=== PATIENT | female | born 1960 ===

== ENCOUNTER 2021-12-16 16:00 | Inpatient (IN) ==
[2021-12-16 17:15] LABS: Basophils % 0.4 %; Eosinophils # 0.3 K/mcL (0.0-0.6); Eosinophils % 3.6 %; Hematocrit 41.6 % (35.3-44.9); Hemoglobin 13.5 g/dL (11.5-15.4); Immature Granulocytes % 0.1 % (0-4); Lymphocytes # 3.4 K/mcL (0.6-4.6); Lymphocytes % 42.6 %; Mean Corpuscular HGB Conc 32.5 g/dL (31.6-35.5); Mean Corpuscular Volume 92.4 fL (83.0-100.0); Mean Platelet Volume 9.7 fL (9.4-12.4); Monocytes # 0.7 K/mcL (0.0-1.3); Monocytes % 8.8 %; Neutrophils # 3.6 K/mcL (1.6-8.9); Platelet Count 348 K/mcL (140-400); Red Cell Distribution Width 13.9 % (11.5-14.5); Segmented Neutrophils % 44.5 %
[2021-12-16 17:23] LABS: Prothrombin Time 11.5 Seconds (9.4-12.1)
[2021-12-16 17:25] LABS: Activated Partial Thrombo Time 30.3 Seconds (26.0-36.0)
[2021-12-16 17:42] LABS: BUN/Creatinine Ratio 22 (6-26); Blood Urea Nitrogen 20 mg/dL (8-23); Calcium 9.7 mg/dL (8.6-10.3); Carbon Dioxide 27 mEq/L (23-29); Chloride 105 mEq/L (98-107); Glucose 79 mg/dL (70-105); Osmolality,Calculated 290 (280-300); Sodium 139 mEq/L (136-145); Troponin I 0.04 ng/mL (< 0.04); eGFR For African Americans > 60 (> 60); eGFR For Non-African Americans > 60 (> 60)
[2021-12-16 18:01] LABS: Influenza A PCR Negative (Negative); Influenza B PCR Negative (Negative); Resp. Syncytial Virus PCR Negative (Negative)
[2021-12-16 18:04] LABS: SARS-CoV-2 by PCR (In House) Negative (Negative)
[2021-12-16 19:01] LABS: Magnesium 2.4 mg/dL (1.6-2.6); Thyroid Stimulating Hormone 3.366 mcIU/mL (0.340-5.600)
[2021-12-16] MEDS ORDERED: Naloxone 0.4 MG/ML INJ IVP PRN (20:28)
[2021-12-16] MEDS ORDERED: Ondansetron ODT 4 MG TAB.RAPDIS SL PRN (20:28)
[2021-12-16] MEDS ORDERED: Perflutren Lipid Microsphere 1.3 ML in 0.9 % Sodium Chloride 8.7 ML IVP PRN (22:01)
[2021-12-16] MEDS ORDERED: *HR* LORazepam 2 MG/ML VIAL IVP PRN ×3 (22:53)
[2021-12-17 03:18] LABS: Basophils % 0.5 %; Eosinophils # 0.3 K/mcL (0.0-0.6); Eosinophils % 4.3 %; Hematocrit 38.9 % (35.3-44.9); Hemoglobin 12.9 g/dL (11.5-15.4); Immature Granulocytes % 0.3 % (0-4); Lymphocytes # 2.2 K/mcL (0.6-4.6); Lymphocytes % 35.3 %; Mean Corpuscular HGB Conc 33.2 g/dL (31.6-35.5); Mean Corpuscular Hemoglobin 30.6 pg (28.0-33.3); Mean Corpuscular Volume 92.4 fL (83.0-100.0); Mean Platelet Volume 9.7 fL (9.4-12.4); Monocytes # 0.6 K/mcL (0.0-1.3); Monocytes % 9.7 %; Neutrophils # 3.1 K/mcL (1.6-8.9); Platelet Count 299 K/mcL (140-400); Red Blood Count 4.21 M/mcL (3.82-4.97); Red Cell Distribution Width 13.9 % (11.5-14.5); Segmented Neutrophils % 49.9 %; White Blood Count 6.2 K/mcL (4.3-11.1)
[2021-12-17 03:37] LABS: BUN/Creatinine Ratio 25 (6-26); Blood Urea Nitrogen 18 mg/dL (8-23); Calcium 9.5 mg/dL (8.6-10.3); Carbon Dioxide 25 mEq/L (23-29); Chloride 107 mEq/L (98-107); Glucose 86 mg/dL (70-105); Osmolality,Calculated 285 (280-300); Potassium 4.2 mEq/L (3.5-5.1); Sodium 137 mEq/L (136-145); eGFR For African Americans > 60 (> 60); eGFR For Non-African Americans > 60 (> 60)
[2021-12-17 03:40] LABS: Troponin I 0.04 ng/mL (< 0.04)
[2021-12-17] MEDS ORDERED: lisinopriL 5 MG TABLET PO SCH (09:00)
[2021-12-17] MEDS: Furosemide 40 MG TABLET PO SCH (09:56)
[2021-12-17] MEDS: Folic Acid 1 MG TABLET PO SCH (09:56)
[2021-12-17] MEDS: Thiamine (B-1) 100 MG TABLET PO SCH (09:56)
[2021-12-17] MEDS: Vitamin B Complex/Vit C/Vit E 1 EACH TABLET PO SCH (09:56)
[2021-12-17] MEDS: Loratadine 10 MG TABLET PO SCH (09:56)
[2021-12-17] MEDS ORDERED: *HR* FentaNYL (PF) 100 MCG/2 ML VIAL ONE (11:54)
[2021-12-17] MEDS ORDERED: 0.9 % Sodium Chloride 500 ML ONE (11:55)
[2021-12-17] MEDS ORDERED: *HR* Midazolam HCl 2 MG/2 ML VIAL ONE (11:55)
[2021-12-17] MEDS ORDERED: Clindamycin 600 MG/50 ML 1,200 MG/100 ML IV.SOLN IVPB ONE (11:55)
[2021-12-17] MEDS ORDERED: 0.9 % Sodium Chloride 1,000 ML ONE (12:14)
[2021-12-17] MEDS ORDERED: Clindamycin 900 MG/50 ML 900 MG/50 ML IV.SOLN IVPB SCH (18:00)
[2021-12-17] MEDS: Acetaminophen 325 MG TABLET PO PRN (18:07)
[2021-12-17] MEDS ORDERED: SUMAtriptan succinate 25 MG TABLET PO PRN (23:33)
[2021-12-18] MEDS: Acetaminophen 325 MG TABLET PO PRN (00:18)
[2021-12-18 05:17] LABS: Hematocrit 43.7 % (35.3-44.9); Hemoglobin 13.2 g/dL (11.5-15.4); Mean Corpuscular HGB Conc 30.2 g/dL (31.6-35.5); Mean Corpuscular Hemoglobin 29.5 pg (28.0-33.3); Mean Corpuscular Volume 97.5 fL (83.0-100.0); Mean Platelet Volume 9.5 fL (9.4-12.4); Platelet Count 255 K/mcL (140-400); Red Blood Count 4.48 M/mcL (3.82-4.97); Red Cell Distribution Width 14.2 % (11.5-14.5); White Blood Count 6.6 K/mcL (4.3-11.1)
[2021-12-18 05:36] LABS: BUN/Creatinine Ratio 22 (6-26); Blood Urea Nitrogen 22 mg/dL (8-23); Calcium 9.2 mg/dL (8.6-10.3); Carbon Dioxide 24 mEq/L (23-29); Chloride 105 mEq/L (98-107); Glucose 105 mg/dL (70-105); Osmolality,Calculated 286 (280-300); Potassium 4.1 mEq/L (3.5-5.1); Sodium 136 mEq/L (136-145); eGFR For African Americans > 60 (> 60); eGFR For Non-African Americans 55 (> 60)
[2021-12-18] MEDS: Loratadine 10 MG TABLET PO SCH (07:36)
[2021-12-18] MEDS: Thiamine (B-1) 100 MG TABLET PO SCH (07:37)
[2021-12-18] MEDS: Folic Acid 1 MG TABLET PO SCH (07:37)
[2021-12-18] MEDS: Vitamin B Complex/Vit C/Vit E 1 EACH TABLET PO SCH (07:37)
[2021-12-18] MEDS: Furosemide 40 MG TABLET PO SCH (07:37)
[2021-12-18] MEDS ORDERED: ALPRAZolam 0.5 MG TABLET PO ONE (09:55)
[2021-12-18 10:12] VITALS: BP 135/93; PULSE 116; TEMP 98.2; O2SAT 97
== END 2021-12-18 12:06 | disposition home or self-care (01) | DRG 242 ==
LOC: EMEROOARM 16:00 → 2NENU 16:00 → SUATTDRO 19:32 → 2NENU 20:21
PROVIDERS: ADMIT Internal Medicine; ATTEND Family Medicine